=== PATIENT | female | born 1965 | race American Indian/Alaskan Native ===

== ENCOUNTER 2016-10-10 07:09 | Outpatient (CLI) | payer OTHER ==
--- NOTE | 2016-10-11 11:04 | Mammography Report ---
Bilateral digital screening mammogram with CAD. Comparison study is dated October 26, 2014. Findings: There are scattered fibroglandular densities, and the overall pattern is unchanged. There are scattered bilateral calcifications which have benign features and are stable. No architectural distortion or mass is seen. Impression: Stable benign findings. BI-RADS code: 2. Recommendation: Annual screening.
== END 2016-10-10 07:10 | disposition home or self-care (01) ==
LOC: MAMMO 07:09
PROVIDERS: ATTEND Registered Nurse Registered Nurse First Assistant
DX: Z12.31 Encounter for screening mammogram for malignant neoplasm of breast (principal); I10 Essential (primary) hypertension
CPT/HCPCS: 77067; G0202